=== PATIENT | male | born 1965 | race Two or more races ===

== ENCOUNTER 2020-10-09 15:53 | Emergency (ER) | payer OTHER ==
[~2020-10-09] VITALS: Ht 170.2 cm; Wt 108.9 kg
[2020-10-09] MEDS ORDERED: TETRACAINE HCL 0.5% OPTH(EYE) SOLN 4ML LEFTEYE ONE (18:30)
[2020-10-09 18:40] VITALS: BP 126/85
== END 2020-10-09 18:43 | disposition home or self-care (01) ==
LOC: ER 15:53
DX: H10.9 Unspecified conjunctivitis (principal); F17.210 Nicotine dependence, cigarettes, uncomplicated